=== PATIENT | male | born 1945 | race Caucasian/White ===

== ENCOUNTER 2019-09-03 15:12 | Observation (INO) | payer OTHER ==
[~2019-09-03] VITALS: Ht 172.7 cm; Wt 85.6 kg
[~2019-09-03 15:12] MED LIST: ACID1TAB3 PO; CITA20TA6 PO; DOCU-131 PO; LIDO700A5 TD; TAMS-11 PO
--- NOTE | 2019-09-03 15:15 | NUR ---
PT BIB [facility], TRANSFERRED FROM [place] FOR C/O CHEST PAIN ONSET TODAY, EXACERBATED WITH MOVEMENT. PER EMS, TROPONIN WAS NEGATIVE, EKG SHOWED SINUS TERRIE 50s. PT WAS GIVEN NITRO X3 DOSES AT [facility] WITH MINOR RELIEF OF CHEST PAIN. ARRIVES TO ED A&OX4, NO SIGNS OF DISTRESS. PAPERWORK RECEIVED FROM [facility].
[2019-09-03] MEDS ORDERED: NITROGLYCERIN SINGLE TAB 0.4 MG SL ONE (15:31)
--- NOTE | 2019-09-03 15:49 | NUR ---
TASK RN: FIRST CONTACT WITH PT, PT RESTING ON GURNEY CONNECTED TO NIBP CUFF, CONTINOUS PULSE OX, AND LINSEED OIL TEMPERER. BEDRAILS UP X 2 AND CALL LIGHT WITHIN REACH. PT STATES CP IS "FEELS LIKE A PULLED MUSCLE".
[2019-09-03 15:52] LABS: BASOPHILS # (AUTO) 0.02 x10^3/uL (0-0.1); BASOPHILS % (AUTO) 0 % (0-1); EOSINOPHILS # (AUTO) 0.13 x10^3/uL (0-0.4); EOSINOPHILS % (AUTO) 2 % (1-7); LYMPHOCYTES # (AUTO) 1.41 x10^3/uL (1-3.4); LYMPHOCYTES % (AUTO) 22 % (22-44); MD NO; MEAN CORPUSCULAR HEMOGLOBIN 30.5 pg (27.5-34.5); MEAN CORPUSCULAR HGB CONC 32.8 g/dL (33.2-36.2); MEAN PLATELET VOLUME 7.5 fL (7.4-10.4); MONOCYTES # (AUTO) 0.47 x10^3/uL (0.2-0.8); MONOCYTES % (AUTO) 7 % (2-9); NEUTROPHILS # (AUTO) 4.48 x10^3/uL (1.8-6.8); NEUTROPHILS % (AUTO) 69 % (42-75); PLATELET COUNT 226 x10^3/uL (130-400); RED BLOOD COUNT 4.77 x10^6/uL (4.38-5.82); RED CELL DISTRIBUTION WIDTH 15.5 % (9.4-14.8)
[2019-09-03] MEDS ORDERED: SODIUM CHLORIDE FLUSH 10ML SYR IVF ONE (16:00)
[2019-09-03] MEDS ORDERED: NITROGLYCERIN SINGLE TAB 0.4 MG SL PRN (16:00)
[2019-09-03 16:03] LABS: ALBUMIN 3.2 g/dL (3.4-5.0); ANION GAP 9 mmol/L (5-15); CALCIUM 8.2 mg/dL (8.5-10.1); CHLORIDE 108 mmol/L (98-107)
[2019-09-03 16:09] LABS: CREATININE 1.09 mg/dL (0.7-1.3); TROPONIN I < 0.015 ng/mL (0.000-0.045)
[2019-09-03] MEDS ORDERED: SODIUM CHLORIDE FLUSH 10ML SYR IVF PRN (17:00)
--- NOTE | 2019-09-03 17:04 | NUR ---
ADMITTING MD WAS IN TO SEE PT.
[2019-09-03] MEDS ORDERED: GABAPENTIN 300 MG CAPSULE PO PRN (17:30)
[2019-09-03] MEDS ORDERED: BACLOFEN 10 MG TABLET PO PRN (17:30)
[2019-09-03] MEDS ORDERED: NITROGLYCERIN 0.4 MG BOTTLE (25 TABS) SL PRN (17:30)
[2019-09-03] MEDS ORDERED: morphine SULFATE 10 MG/ML, 1ML IVPush PRN (17:30)
[2019-09-03] MEDS ORDERED: NITROGLYCERIN 0.4 MG/SPRAY SL PRN (17:30)
[2019-09-03] MEDS ORDERED: morphine SULFATE 10 MG/ML, 1ML IV PRN (17:30)
[2019-09-03] MEDS ORDERED: ACETAMINOPHEN 325 MG TABLET PO PRN (17:30)
[2019-09-03 17:40] LABS: LDL/HDL RATIO 2.9 (0.5-3.0)
[2019-09-03 17:56] LABS: FREE T4 (FREE THYROXINE) 0.94 ng/dL (0.76-1.46)
--- NOTE | 2019-09-03 18:16 | NUR ---
PT DENIES CHEST PAIN AT THIS TIME. RV'WD PLAN FOR ADMISSION WITH HIM. AMBULATED TO [facility] WITHOUT DIFFICULTY.
--- NOTE | 2019-09-03 19:02 | NUR ---
SANDWICH PROVIDED TO PT.
[2019-09-03 20:15] VITALS: BP 121/57
[2019-09-03] MEDS: DOCUSATE 100 MG CAPSULE PO SCH (21:44)
[2019-09-03] MEDS: ATORVASTATIN 40 MG TABLET PO SCH (21:44)
[2019-09-03] MEDS: SODIUM CHLORIDE FLUSH 10ML SYR IVF SCH (21:45)
[2019-09-03 23:24] LABS: TROPONIN I < 0.015 ng/mL (0.000-0.045)
[2019-09-04] VITALS (7 sets, daily range): BP systolic 96–144; BP diastolic 54–71
[2019-09-04 05:39] LABS: ANION GAP 6 mmol/L (5-15); CHLORIDE 110 mmol/L (98-107); CREATININE 1.21 mg/dL (0.7-1.3)
[2019-09-04 05:48] LABS: TROPONIN I < 0.015 ng/mL (0.000-0.045)
[2019-09-04] MEDS: ASPIRIN 325 MG TABLET EC PO SCH (05:50)
[2019-09-04] MEDS ORDERED: REGADENOSON 0.4 MG/5 ML SYRINGE ONE (07:59)
[2019-09-04] MEDS: SODIUM CHLORIDE FLUSH 10ML SYR IVF SCH ×2 (10:52→20:11)
[2019-09-04] MEDS: CLOPIDOGREL 75 MG TABLET PO SCH (10:52)
[2019-09-04] MEDS: TAMSULOSIN 0.4 MG CAP.ER.24H PO SCH (10:53)
[2019-09-04] MEDS: DOCUSATE 100 MG CAPSULE PO SCH ×2 (10:53→20:11)
[2019-09-04] MEDS: CITALOPRAM 20 MG TABLET PO SCH (10:53)
[2019-09-04] MEDS ORDERED: NITROGLYCERIN 0.4 MG/SPRAY SL PRN (15:30)
[2019-09-04] MEDS ORDERED: NITROGLYCERIN 0.4 MG BOTTLE (25 TABS) SL PRN (15:30)
[2019-09-04] MEDS ORDERED: KETOROLAC 30 MG/1 ML IVPush PRN (17:00)
[2019-09-04] MEDS ORDERED: METHOCARBAMOL 500 MG TABLET ONE (17:13)
[2019-09-04] MEDS: METHOCARBAMOL 500 MG TABLET PO SCH ×2 (17:16→21:00)
[2019-09-04] MEDS: ATORVASTATIN 40 MG TABLET PO SCH (20:11)
[2019-09-05 04:00] VITALS: BP 127/75
[2019-09-05] MEDS: METHOCARBAMOL 500 MG TABLET PO SCH ×2 (05:54→11:00)
[2019-09-05] MEDS: ASPIRIN 325 MG TABLET EC PO SCH (05:54)
[2019-09-05] MEDS: CITALOPRAM 20 MG TABLET PO SCH (07:52)
[2019-09-05] MEDS: DOCUSATE 100 MG CAPSULE PO SCH (07:52)
[2019-09-05] MEDS: CLOPIDOGREL 75 MG TABLET PO SCH (07:53)
[2019-09-05] MEDS: TAMSULOSIN 0.4 MG CAP.ER.24H PO SCH (07:53)
[2019-09-05] MEDS: SODIUM CHLORIDE FLUSH 10ML SYR IVF SCH (07:59)
[2019-09-05 09:05] VITALS: BP 132/66
[2019-09-05] MEDS ORDERED: CLOP75TA PO (09:44)
[2019-09-05] MEDS ORDERED: ACET325T26 PO (09:44)
[2019-09-05] MEDS ORDERED: ASPI81TA45 PO (09:44)
[2019-09-05] MEDS ORDERED: METH500T7 PO (09:44)
== END 2019-09-05 12:27 | disposition home or self-care (01) ==
LOC: SUATTDRO 16:48 → ED 18:26 → INTOOBSV 18:27 → 5SO 18:27 → DCLOUNGE 09-05 12:08
PROVIDERS: ADMIT Hospitalist; ATTEND Hospitalist
DX: I25.10 Atherosclerotic heart disease of native coronary artery without angina pectoris (principal); I25.5 Ischemic cardiomyopathy; R07.89 Other chest pain; E03.9 Hypothyroidism, unspecified; I10 Essential (primary) hypertension; R00.1 Bradycardia, unspecified; F17.200 Nicotine dependence, unspecified, uncomplicated; F03.90 Unspecified dementia, unspecified severity, without behavioral disturbance, psychotic disturbance, mood disturbance, and anxiety; F43.10 Post-traumatic stress disorder, unspecified; Z79.899 Other long term (current) drug therapy; Z95.1 Presence of aortocoronary bypass graft
CPT/HCPCS: 36415; 78452; 80048; 80061; 82040; 83880; 84439; 84443; 84484; 85025; 93005; 93017; 99285; A9502; C8929; G0378; J2785; Q9957